=== PATIENT | female | born 1955 | race American Indian/Alaskan Native ===

== ENCOUNTER 2017-01-07 09:43 | Emergency (ER) | payer MEDICARE ==
--- NOTE | 2017-01-07 10:00 | Emergency Department Report ---
Chief Complaint: Extremity Injury, Lower Stated Complaint: LEFT SIDE PAIN Time Seen by Provider: 01/07/17 09:58 - HPI History of Present Illness: PT c/o Left leg pain and swelling since yesterday. - ROS Review of Systems: - rashes - fever - Exam Vital Signs: Vital Signs 01/07/17 09:50 Temperature 98.6 F Pulse Rate 88 Respiratory 18 Rate Blood Pressure 97/83 O2 Sat by Pulse 99 Oximetry Physical Exam: + left foot trace edema MSE screening note: Focused history and physical exam performed. Due to findings the following was ordered: labs, us ED Disposition for MSE Condition: Stable
[2017-01-07 10:17] LABS: Basophils % (Auto) 0.4 % (0.0-1.8); Eosinophils % (Auto) 1.1 % (0.0-4.3); Hematocrit 40.1 % (30.3-42.9); Mean Corpuscular HGB Conc 32 % (30-34); Mean Corpuscular Hemoglobin 30 pg (28-32); Mean Corpuscular Volume 92 fl (79-97); Platelet Count 331 K/mm3 (140-440); Red Blood Count 4.38 M/mm3 (3.65-5.03); Red Cell Distribution Width 14.7 % (13.2-15.2); White Blood Count 6.3 K/mm3 (4.5-11.0)
[2017-01-07 10:41] LABS: Alanine Aminotransferase 14 units/L (7-56); Albumin 4.4 g/dL (3.9-5); Albumin/Globulin Ratio 1.3 %; Alkaline Phosphatase 81 units/L (35-129); Anion Gap 16 mmol/L; Blood Urea Nitrogen 9 mg/dL (7-17); Calcium 9.6 mg/dL (8.4-10.2); Carbon Dioxide 27 mmol/L (22-30); Chloride 101.4 mmol/L (98-107); Glucose 109 mg/dL (65-100); Potassium 4.2 mmol/L (3.6-5.0); Sodium 140 mmol/L (137-145); Total Protein 7.7 g/dL (6.3-8.2)
[2017-01-07] MEDS ORDERED: MOTRIN PO ONE (12:22)
--- NOTE | 2017-01-07 12:22 | Emergency Department Report ---
ED Back Pain/Injury HPI - General Chief Complaint: Extremity Injury, Lower Stated Complaint: LEFT SIDE PAIN Time Seen by Provider: 01/07/17 09:58 Source: patient Limitations: No Limitations - History of Present Illness Initial Comments: This is a 61-year-old female nontoxic, well nourished in appearance, no acute signs of distress presents to the ED complaining of chronic intermittent lower back pain that radiates to the left leg. Patient stated she was diagnosed many years ago with herniated disc and develops these intermittent back pain with left leg tingling sensation as well as pain. Patient denies any trauma to the region. Patient stated she does not follow up with her primary care doctor for her back pain because it resolves intermittently. He denies any stiff neck, numbness, headache, chest pain, shortness of breath, fever, chills, nausea, vomiting. Patient denies any trauma to the back or extremity. Denies any calf pain or tenderness. He denies any swelling. Denies abnormal gait or decreased range of motion. Patient denies recent hospital stays, long car rides or recent rales. Patient states allergies to penicillin and shellfish. Past medical history includes hypertension. MD Complaint: back pain -: Gradual, year(s) Similar Symptoms Previously: Yes Radiation: left leg Severity: mild Severity scale (0 -10): 8 Quality: aching Consistency: intermittent Improves With: supine, sitting upright Worsens With: movement, walking Associated Symptoms: denies other symptoms. denies: confusion, weakness, chest pain, numbness, difficulty walking, cough, difficulty urinating, diaphoresis, incontinence, fever/chills, constipation, headaches, abdominal pain, loss of appetite, malaise, nausea/vomiting, rash, seizure, shortness of breath, syncope - Related Data Home Medications Medication Instructions Recorded Confirmed Last Taken Cyclobenzaprine [Flexeril] 10 mg PO TID PRN 12/25/12 12/25/12 12/22/12 22:00 Ibuprofen [Motrin 800 MG tab] 1 tab PO BID 12/25/12 12/25/12 Unknown Lisinopril [Zestril] 10 mg PO QDAY 12/25/12 12/25/12 12/25/12 07:00 amLODIPine [Norvasc] 10 mg PO DAILY 12/25/12 12/25/12 12/25/12 07:00 Previous Rx's Medication Instructions Recorded Last Taken Type Hydrocodone Bit/Acetaminophen 1 each PO Q4-6H PRN #12 tablet 12/25/12 Unknown Rx [Lortab 5-500 Tablet] Azithromycin [Zithromax Z-CIRO] 250 mg PO DAILY #6 tablet 02/06/16 Unknown Rx Fluticasone [Flonase] 1 spray NS QDAY #1 bottle 02/06/16 Unknown Rx Loratadine [Claritin] 10 mg PO DAILY #7 tablet 02/06/16 Unknown Rx predniSONE [Deltasone] 50 mg PO QDAY #5 tab 02/06/16 Unknown Rx Cyclobenzaprine [Flexeril] 10 mg PO TID PRN #15 tablet 01/07/17 Unknown Rx Ibuprofen [Motrin 600 MG tab] 600 mg PO Q8H PRN #30 tablet 01/07/17 Unknown Rx Allergies Allergy/AdvReac Type Severity Reaction Status Date / Time Penicillins Allergy Nausea Verified 03/19/14 11:55 shellfish derived Allergy Rash Verified 02/06/16 12:12 ED Review of Systems ROS: Stated complaint: LEFT SIDE PAIN Other details as noted in HPI Constitutional: denies: chills, fever Eyes: denies: eye pain, eye discharge, vision change ENT: denies: ear pain, throat pain Respiratory: denies: cough, shortness of breath, wheezing Cardiovascular: denies: chest pain, palpitations Endocrine: no symptoms reported Gastrointestinal: denies: abdominal pain, nausea, diarrhea Genitourinary: denies: urgency, dysuria, discharge Musculoskeletal: denies: back pain, joint swelling, arthralgia Skin: denies: rash, lesions Neurological: denies: headache, weakness, paresthesias Psychiatric: denies: anxiety, depression Hematological/Lymphatic: denies: easy bleeding, easy bruising ED Past Medical Hx - Past Medical History Hx Hypertension: Yes Additional medical history: sinus - Surgical History Hx Appendectomy: Yes Additional Surgical History: hysterectomy. gallstones removed. cyst right hand removed x 2 - Social History Smoking Status: Never Smoker Substance Use Type: None - Medications Home Medications: Home Medications Medication Instructions Recorded Confirmed Last Taken Type Cyclobenzaprine [Flexeril] 10 mg PO TID PRN 12/25/12 12/25/12 12/22/12 22:00 History Hydrocodone Bit/Acetaminophen 1 each PO Q4-6H PRN #12 tablet 12/25/12 Unknown Rx [Lortab 5-500 Tablet] Ibuprofen [Motrin 800 MG tab] 1 tab PO BID 12/25/12 12/25/12 Unknown History Lisinopril [Zestril] 10 mg PO QDAY 12/25/12 12/25/12 12/25/12 07:00 History amLODIPine [Norvasc] 10 mg PO DAILY 12/25/12 12/25/12 12/25/12 07:00 History Azithromycin [Zithromax Z-CIRO] 250 mg PO DAILY #6 tablet 02/06/16 Unknown Rx Fluticasone [Flonase] 1 spray NS QDAY #1 bottle 02/06/16 Unknown Rx Loratadine [Claritin] 10 mg PO DAILY #7 tablet 02/06/16 Unknown Rx predniSONE [Deltasone] 50 mg PO QDAY #5 tab 02/06/16 Unknown Rx Cyclobenzaprine [Flexeril] 10 mg PO TID PRN #15 tablet 01/07/17 Unknown Rx Ibuprofen [Motrin 600 MG tab] 600 mg PO Q8H PRN #30 tablet 01/07/17 Unknown Rx ED Physical Exam - General Limitations: No Limitations General appearance: alert, in no apparent distress - Head Head exam: Present: atraumatic, normocephalic, normal inspection - Eye Eye exam: Present: normal appearance, PERRL, EOMI. Absent: scleral icterus, conjunctival injection, nystagmus, periorbital swelling, periorbital tenderness Pupils: Present: normal accommodation - ENT ENT exam: Present: normal exam, normal orophraynx, mucous membranes moist, TM's normal bilaterally, normal external ear exam - Neck Neck exam: Present: normal inspection, full ROM. Absent: tenderness, meningismus, lymphadenopathy, thyromegaly - Respiratory Respiratory exam: Present: normal lung sounds bilaterally. Absent: respiratory distress, wheezes, rales, rhonchi, stridor, chest wall tenderness, accessory muscle use, decreased breath sounds, prolonged expiratory - Cardiovascular Cardiovascular Exam: Present: regular rate, normal rhythm, normal heart sounds. Absent: bradycardia, tachycardia, irregular rhythm, systolic murmur, diastolic murmur, rubs, gallop - GI/Abdominal GI/Abdominal exam: Present: soft, normal bowel sounds. Absent: distended, tenderness, guarding, rebound, rigid, diminished bowel sounds - Rectal Rectal exam: Present: deferred - Extremities Exam Extremities exam: Present: normal inspection, full ROM, normal capillary refill. Absent: tenderness, pedal edema, joint swelling, calf tenderness - Expanded Lower Extremity Exam Left Hip exam: Present: normal inspection, full ROM, external rotation, internal rotation, pelvic stability. Absent: tenderness, swelling, abrasion, laceration , ecchymosis, deformity, crepidus, dislocation, erythema, shortening Upper Leg exam: Present: normal inspection, full ROM. Absent: tenderness, swelling, abrasion, laceration, ecchymosis, deformity, crepidus, dislocation, erythema Knee exam: Present: normal inspection, full ROM, full knee extension. Absent: tenderness, swelling, abrasion, laceration, ecchymosis, deformity, crepidus, dislocation, erythema, effusion, pain w/ pronation/supination, posterior draw sign, pain/laxity with valgus, pain/laxity with varus Lower Leg exam: Present: normal inspection, full ROM. Absent: tenderness, swelling, abrasion, laceration, ecchymosis, deformity, crepidus, dislocation, erythema, palpable cord, Colin's sign Ankle exam: Present: normal inspection, full ROM. Absent: tenderness, swelling , abrasion, laceration, ecchymosis, deformity, crepidus, dislocation, erythema, anterior draw sign Foot/Toe exam: Present: normal inspection, full ROM. Absent: tenderness, swelling, abrasion, laceration, ecchymosis, deformity, crepidus, dislocation, erythema, amputation, puncture wound, foreign body, calcaneal tenderness, tenderness at base of 5th metatarsal, nail avulsion, subungual hematoma Neuro vascular tendon exam: Present: no vascular compromise. Absent: pulse deficit, abnormal cap refill, motor deficit, sensory deficit, tendon deficit, extremity cold to touch, pallor, abnormal 2-point discrimination, decreased fine /light touch, foot drop, peroneal nerve deficit, significant pain with passive ROM of distal joint Gait: Positive: observed and normal - Back Exam Back exam: Present: normal inspection, full ROM, tenderness, paraspinal tenderness (lumbar region). Absent: CVA tenderness (R), CVA tenderness (L), muscle spasm, vertebral tenderness, rash noted - Expanded Back Exam Expanded Back exam: Present: normal rectal tone. Absent: saddle anesthesia Back exam: Negative Straight Leg Raising: Left, Right - Neurological Exam Neurological exam: Present: alert, oriented X3, CN II-XII intact, normal gait, reflexes normal - Psychiatric Psychiatric exam: Present: normal affect, normal mood - Skin Skin exam: Present: warm, dry, intact, normal color. Absent: rash ED Course Vital Signs 01/07/17 09:50 Temperature 98.6 F Pulse Rate 88 Respiratory 18 Rate Blood Pressure 97/83 O2 Sat by Pulse 99 Oximetry - Reevaluation(s) Reevaluation #1: 01/07/17 12:24 Patient is speaking in full sentences with no signs of distress noted. ED Medical Decision Making - Lab Data Result diagrams: 01/07/17 10:02 01/07/17 10:02 - Medical Decision Making This is a 61-year-old female that presents with lumbar radiculopathy vs sciatica. Vision was examined myself. Patient is stable. The patient received Doppler the left lower extremity with negative findings of DVT. Patient did state to me she was diagnosed with lumbar herniated disc and develops this intermittently. Patient was instructed to follow-up with orthopedic doctor/primary care about 3-5 days or if symptoms worsen or continue presents emergency room as soon as possible. Patient received ibuprofen and Flexeril at discharge and was instructed not operate any machinery while taking Flexeril due to sedation. At time time of discharge, the patient does not seem toxic or ill in appearance. No acute signs of distress noted. Patient agrees to discharge treatment plan of care. No further questions noted by the patient. Critical care attestation.: If time is entered above; I have spent that time in minutes in the direct care of this critically ill patient, excluding procedure time. ED Disposition Clinical Impression: Lumbar radiculopathy Sciatica Qualifiers: Laterality: left Qualified Code(s): M54.32 - Sciatica, left side Disposition: TO HOME OR SELFCARE Is pt being admited?: No Does the pt Need Aspirin: No Condition: Stable Instructions: Lumbar Radiculopathy (ED), Sciatica (ED), Ibuprofen (By mouth), Cyclobenzaprine (By mouth) Additional Instructions: Follow-up with a primary care doctor/orthopedic doctor in 3-5 days or if symptoms worsen continue return to emergency room as was possible. Take ibuprofen and Flexeril as prescribed. Do not operate heavy machinery while taking Flexeril due to sedation Prescriptions: Cyclobenzaprine [Flexeril] 10 mg PO TID PRN #15 tablet PRN Reason: Muscle Spasm Ibuprofen [Motrin 600 MG tab] 600 mg PO Q8H PRN #30 tablet PRN Reason: Pain Referrals: PRIMARY CARE, [Primary Care Provider] - 3-5 Days CAT AGUILAR MD [Staff Physician] - 3-5 Days STEPHEN BURGOS MD [Staff Physician] - 3-5 Days [facility] [Outside] - 3-5 Days [facility] [Outside] - 3-5 Days
[2017-01-07 12:59] VITALS: BP 155/84
== END 2017-01-07 12:58 | disposition home or self-care (01) ==
LOC: ED 09:43
DX: M54.32 Sciatica, left side (principal); M54.16 Radiculopathy, lumbar region; Z91.013 Allergy to seafood; Z88.0 Allergy status to penicillin
CPT/HCPCS: 36415; 80053; 85025